=== PATIENT | female | born 1980 | race Caucasian/White ===

== ENCOUNTER 2024-03-19 21:03 | Emergency (ER) | payer BC, OTHER ==
[~2024-03-19] VITALS: Ht 162.6 cm; Wt 65.8 kg
[~2024-03-19 21:03] MED LIST: FOLI1TAB16 PO; PREN1TAB48 PO; [UNRECOGNIZED DRUG - CODE] PO
[2024-03-19 23:16] VITALS: BP 132/78; TEMP 99.1; O2SAT 99
== END 2024-03-19 23:17 | disposition home or self-care (01) ==
LOC: ER 21:08
DX: M79.671 Pain in right foot (principal); W18.39XA Other fall on same level, initial encounter; Y93.89 Activity, other specified; Y92.89 Other specified places as the place of occurrence of the external cause; Y99.8 Other external cause status
CPT/HCPCS: 73630-TC